=== PATIENT | female | born 1990 | race American Indian/Alaskan Native ===

== ENCOUNTER 2019-05-03 23:32 | Emergency (ER) | payer OTHER ==
[2019-05-03] MEDS ORDERED: BENADRYL IV ONE (23:51)
[2019-05-03] MEDS ORDERED: PEPCID IV ONE (23:51)
--- NOTE | 2019-05-03 23:59 | Emergency Department Report ---
HPI - General Time Seen by Provider: 05/03/19 23:45 - HPI HPI: Room 24 The patient is a 28-year-old female presented with a chief complaint of allergic reaction. The patient states she was in her usual state of health when she stepped outside after talking on phone and she suddenly developed diffuse itching. The patient states she felt as though something was crawling on her skin then she noticed her face is breaking out. The patient then noticed a diffuse rash and diffuse itching. Patient denies any previous episodes of same. Patient denies any new medication or food ingestions. Patient denies new detergent or body wash. The patient states her conversation on the phone was not stressful. EMS was called and administered Solu-Medrol 125 mg IV and Benadryl 25 mg IV. Patient denies abdominal pain or vaginal bleeding Location: [See above] Duration: [See above] Quality: [See above] Severity: [See above] Modifying factors: [see above] Context: [see above] Mode of transportation: [not driving] ED Past Medical Hx - Past Medical History Previous Medical History?: No - Surgical History Past Surgical History?: No - Family History Family history: no significant - Social History Smoking Status: Never Smoker Substance Use Type: None - Medications Home Medications: Home Medications Medication Instructions Recorded Confirmed Last Taken Type EPINEPHrine [Epipen 2-Tarik] 0.3 mg IM ONCE PRN #0.6 ml 05/04/19 Unknown Rx Famotidine [Pepcid] 20 mg PO BID #6 tablet 05/04/19 Unknown Rx Prednisone [predniSONE 10 mg 10 mg PO .TAPER #1 tab.ds.pk 05/04/19 Unknown Rx (6-Day Pack, 21 Tabs)] diphenhydrAMINE [Benadryl CAP] 50 mg PO Q6HR #24 capsule 05/04/19 Unknown Rx ED Review of Systems ROS: Stated complaint: ALLERGIC REACTION Other details as noted in HPI Constitutional: no symptoms reported Eyes: denies: eye pain ENT: denies: throat pain Respiratory: denies: shortness of breath Cardiovascular: denies: chest pain Endocrine: no symptoms reported Gastrointestinal: denies: abdominal pain Genitourinary: denies: dysuria Musculoskeletal: denies: back pain Skin: rash, pruritus Neurological: denies: headache Physical Exam - Physical Exam Physical Exam: GENERAL: The patient is well-developed well-nourished []. [] HEENT: Normocephalic. Atraumatic. Extraocular motions are intact. Patient has moist mucous membranes. NECK: Trachea midline. There is no stridor CHEST/LUNGS: Clear to auscultation. There is no respiratory distress noted. HEART/CARDIOVASCULAR: Regular. There is no tachycardia. There is no gallop rub or murmur. ABDOMEN: Abdomen is soft, nontender. Patient has normal bowel sounds. There is no abdominal distention. SKIN: There is a diffuse papular rash that is pruritic. There is no diaphoresis. NEURO: The patient is awake, alert, and oriented. The patient is cooperative. The patient has normal speech MUSCULOSKELETAL: There is no evidence of acute injury. ED Course - Reevaluation(s) Reevaluation #1: 05/04/19 01:36 Patient states she feels improved - Consultations Consultation #1: 05/04/19 01:13 Case discussed with [employer] Dr. Sharon tucker to give patient a prednisone taper at 15 weeks gestational age ED Medical Decision Making - Lab Data Result diagrams: 05/04/19 00:18 05/04/19 00:18 Laboratory Tests 05/04/19 05/04/19 00:18 00:18 WBC 12.7 H RBC 3.93 Hgb 11.2 Hct 32.1 MCV 82 MCH 29 MCHC 35 H RDW 14.2 Plt Count 233 Lymph % (Auto) 9.4 L Hart % (Auto) 4.1 Eos % (Auto) 0.4 Baso % (Auto) 0.2 Lymph # 1.2 Hart # 0.5 Eos # 0.1 Baso # 0.0 Seg Neutrophils % 85.9 H Seg Neutrophils # 10.9 H Sodium 138 Potassium 3.3 L Chloride 105.5 Carbon Dioxide 22 Anion Gap 14 BUN 9 Creatinine 0.6 L Estimated GFR > 60 BUN/Creatinine Ratio 15 Glucose 91 Calcium 8.3 L - Differential Diagnosis acute allergic reaction Critical care attestation.: If time is entered above; I have spent that time in minutes in the direct care of this critically ill patient, excluding procedure time. ED Disposition Clinical Impression: Acute allergic reaction, Hypokalemia Disposition: TO HOME OR SELFCARE Is pt being admited?: No Does the pt Need Aspirin: No Condition: Stable Instructions: Anaphylaxis (ED), Urticaria (ED) Additional Instructions: Return to the emergency department immediately should you develop worsening symptoms, fever, inability to tolerate food or liquid or any other concerns. Prescriptions: diphenhydrAMINE [Benadryl CAP] 50 mg PO Q6HR #24 capsule EPINEPHrine [Epipen 2-Tarik] 0.3 mg IM ONCE PRN #0.6 ml PRN Reason: Shortness Of Breath Famotidine [Pepcid] 20 mg PO BID #6 tablet Prednisone [predniSONE 10 mg (6-Day Pack, 21 Tabs)] 10 mg PO .TAPER #1 tab.ds.pk Referrals: KEENAN LOPEZ MD [Staff Physician] - 3-5 Days (Dr Lopez is an museum preparator. Please follow up with her for further evaluation) Time of Disposition: 01:38
[2019-05-04 01:00] LABS: Basophils % (Auto) 0.2 % (0.0-1.8); Eosinophils # (Auto) 0.1 K/mm3 (0.0-0.4); Eosinophils % (Auto) 0.4 % (0.0-4.3); Hematocrit 32.1 % (30.3-42.9); Hemoglobin 11.2 gm/dl (10.1-14.3); Lymphocytes # (Auto) 1.2 K/mm3 (1.2-5.4); Lymphocytes % (Auto) 9.4 % (13.4-35.0); Mean Corpuscular HGB Conc 35 % (30-34); Mean Corpuscular Volume 82 fl (79-97); Monocytes # (Auto) 0.5 K/mm3 (0.0-0.8); Monocytes % (Auto) 4.1 % (0.0-7.3); Platelet Count 233 K/mm3 (140-440); Red Blood Count 3.93 M/mm3 (3.65-5.03); Red Cell Distribution Width 14.2 % (13.2-15.2)
[2019-05-04 01:21] VITALS: BP 110/72
[2019-05-04 01:22] LABS: BUN/Creatinine Ratio 15; Blood Urea Nitrogen 9 mg/dL (7-17); Calcium 8.3 mg/dL (8.4-10.2); Hemolysis Index 10
[2019-05-04] MEDS ORDERED: K-DUR PO ONE (01:33)
== END 2019-05-04 02:01 | disposition home or self-care (01) ==
LOC: ED 23:32
DX: T78.40XA Allergy, unspecified, initial encounter (principal); E87.6 Hypokalemia; X58.XXXA Exposure to other specified factors, initial encounter
CPT/HCPCS: 36415; 80048; 85025; J1200